=== PATIENT | female | born 2000 | race Two or more races ===

== ENCOUNTER 2024-04-07 11:45 | Emergency (ER) | payer MEDICAID, OTHER ==
[~2024-04-07] VITALS: Ht 167.6 cm; Wt 63.0 kg
[2024-04-07 12:22] VITALS: BP 110/70; PULSE 91; RESP 18; TEMP 98.7; O2SAT 97
[2024-04-07] MEDS ORDERED: IBUP1TAB5 PO (13:28)
== END 2024-04-07 13:42 | disposition home or self-care (01) ==
LOC: ER 11:59
DX: S93.505A Unspecified sprain of left lesser toe(s), initial encounter (principal); Z79.1 Long term (current) use of non-steroidal anti-inflammatories (NSAID); X58.XXXA Exposure to other specified factors, initial encounter; Y93.89 Activity, other specified; Y92.89 Other specified places as the place of occurrence of the external cause; Y99.8 Other external cause status
CPT/HCPCS: 73630

== ENCOUNTER 2025-02-04 08:08 | Observation (INO) | payer MEDICAID ==
[~2025-02-04 08:08] MED LIST: IBUP1TAB5 PO
--- NOTE | 2025-02-04 09:04 | DVH ---
CLINICAL HISTORY: Term . COMPARISON: None TECHNIQUE: biophysical profile was performed. Transabdominal sonographic images of the fetus we re obtained. FINDINGS: The fetus is in cephalic position. heart rate measures 144 BPM. Amniotic fluid index measures 14.5 cm. The placenta is anterior in position without evidence of previa or abruption seen. BPP profile is an overall score of 8/8, with 2/2 points for breathing, with at least one episode of breathing over a 30 second duration during a 30 minute observation, 2/2 points for m ovements, with 3 or more discrete body or limb movements, 2/2 points for tone, with one or more episodes of extremity extension with return to flexion, or opening and closing of hand, and 2/ 2 points for amniotic fluid, with at least 1 pocket of amniotic fluid that measures 2 cm in 2 perpend icular planes. IMPRESSION: BPP score of 8/8.
--- NOTE | 2025-02-04 14:22 | DVHDS2 ---
Physician Discharge Progress N Final Diagnosis: iup at 40wks Operations or Procedures: Operations or Procedures nst reactive reviwed,sono Other Interventions Other Interventions refuses vag exam and induction Condition on Discharge: Good Disposition: Home Discharge Instructions: Diet: Regular Activity: Light activity Medications: na Follow Up Care: Specialist: 2d Discharge Statement: "Patient was advised to return to the ER or call 911 if any headaches, dizziness, shortness of breath, chest pain, abdominal pain, bleeding, fevers, or worsening of medical condition. Patient was counseled about treatment plan, medications, possible side effects, patientverbalized understanding. All questions were answered to the best of my ability. This discharge took greater then 30 minutes in planning, reviewing documentation, counseling the patient, and discussing with other team members." Visit Coding OBGYN Date of Service: Feb 04, 2025 Billing Provider: MATEO WOLFF DO [employer] Common Visit Codes: 24170-[id number] OBS CARE (HIGH) [employer]T [employer]KER Procedure Codes: 41419-40- NON-STRESS TEST MATEO WOLFF DO Feb 04, 2025 14:22
[2025-02-05 20:07] LABS: Chlamydia Trachomatis, NAA Negative (Negative); Neisseria gonorrhoeae, NAA Negative (Negative)
== END 2025-02-04 09:28 | disposition home or self-care (01) ==
LOC: LDRP 08:08 → UNDOADMOB 08:08 → LDRP 08:16
PROVIDERS: ADMIT Obstetrics & Gynecology; ATTEND Obstetrics & Gynecology
DX: O48.0 Post-term pregnancy (principal); Z98.890 Other specified postprocedural states; Z79.899 Other long term (current) drug therapy; Z3A.40 40 weeks gestation of pregnancy
CPT/HCPCS: 59025; 76819; 81002; 87491; 87591; 94760; G0378

== ENCOUNTER 2025-02-18 16:05 | Observation (INO) | payer MEDICAID ==
--- NOTE | 2025-02-18 18:07 | DVH ---
BIOPHYSICAL PROFILE HISTORY: term TECHNIQUE: Multiple transabdominal real-time grayscale sonographic images through the gravid uterus of the fetus with duplex Doppler color flow and M-mode spectral analysis FINDINGS: BIOPHYSICAL PROFILE: breathing score: 2 movement score: 2 tone score: 2 Quantitative SHOAIB score: 2 (SHOAIB: 8.65 Cm.) Total score: 8/8 The cervix Single live fetus in vertex presentation. heart rate 153 beats per minute. Anterior Grade 3 placenta without previa or abruption Single live fetus at 40 weeks 4 days Biophysical profile score 8/8 corresponding to an MATT of 02/14/2025 IMPRESSION: 1. Biophysical profile score: 8/8
[2025-02-18] MEDS ORDERED: PREN1TAB71 PO (18:33)
--- NOTE | 2025-02-18 19:17 | DVHDS2 ---
Physician Discharge Progress N Final Diagnosis: testing for term Operations or Procedures: Operations or Procedures 24yo IUP@40.4wks, +FM, denies UCs/LOF/VB/preE sx VSS NST reactive SVE declined FKC/PreE/labor precautions reviewed. Other Interventions Other Interventions [place] [id number] Ph: [phone] DIAGNOSTIC IMAGING Diagnostic Imaging Report : [id number] Signed PATIENT: MICHELLE CHAEVZ ACCT: [id number] UNIT: [id number] : 2000 LOC: [facility] ROOM / BED: TRIAGE1 / A AGE / SEX: 24 / F ADM STATUS: ADM IN SERVICE 13 ORDERING PHYSICIAN: HAIR CORDERO CNM PROCEDURE(s): BPP - BIOPHYSICAL PROFILE REASON: term ORDER NUMBER(s): [id number], ACCESSION NUMBER(s): [id number] BIOPHYSICAL PROFILE HISTORY: term TECHNIQUE: Multiple transabdominal real-time grayscale sonographic images through the gravid uterus of the fetus with duplex Doppler color flow and M-mode spectral analysis FINDINGS: BIOPHYSICAL PROFILE: breathing score: 2 movement score: 2 tone score: 2 Quantitative SHOAIB score: 2 (SHOAIB: 8.65 Cm.) Total score: 8/8 The cervix Single live fetus in vertex presentation. heart rate 153 beats per minute. Anterior Grade 3 placenta without previa or abruption Single live fetus at 40 weeks 4 days Biophysical profile score 8/8 corresponding to an MATT of 02/14/2025 IMPRESSION: 1. Biophysical profile score: 8/8 ATED BY: BEV YAÑEZ Jr., DO DICTATED DATE/TIME: 02/18/251804 SIGNED BY: BEV YAÑEZ Jr., DO SIGNED DATE/TIME: 02/18/251804 CC: Condition on Discharge: Stable Disposition: Home Discharge Instructions: Diet: Regular Activity: No Restrictions, As Tolerated Medications: see med list Follow Up Care: Specialist: f/u in 2 days Discharge Statement: "Patient was advised to return to the ER or call 911 if any headaches, dizziness, shortness of breath, chest pain, abdominal pain, bleeding, fevers, or worsening of medical condition. Patient was counseled about treatment plan, medications, possible side effects, patientverbalized understanding. All questions were answered to the best of my ability. This discharge took greater then 30 minutes in planning, reviewing docu mentation, counseling the patient, and discussing with other team members." Visit Coding OBGYN Date of Service: Feb 18, 2025 Billing Provider: HAIR CORDERO CNM [employer] Common Visit Codes: 09549-[id number] OBS CARE (HIGH) [employer] Procedure Codes: 07870-53- NON-STRESS TEST HAIR CORDERO CNM Feb 18, 2025 19:17
== END 2025-02-18 18:55 | disposition home or self-care (01) ==
LOC: LDRP 16:05
PROVIDERS: ADMIT Obstetrics & Gynecology; ATTEND Obstetrics & Gynecology
DX: O48.0 Post-term pregnancy (principal); Z3A.40 40 weeks gestation of pregnancy; Z98.890 Other specified postprocedural states; Z79.899 Other long term (current) drug therapy
CPT/HCPCS: 59025; 76819; 81002; 94760; G0378

== ENCOUNTER 2025-02-20 19:14 | Observation (INO) | payer MEDICAID ==
[~2025-02-20] VITALS: Ht 167.6 cm; Wt 85.3 kg
[~2025-02-20 19:14] MED LIST changes: +PREN1TAB71 PO
--- NOTE | 2025-02-20 20:01 | DVH ---
BIOPHYSICAL PROFILE HISTORY: BPP Post date TECHNIQUE: Multiple transabdominal real-time grayscale sonographic images through the gravid uterus of the fetus with duplex Doppler color flow and M-mode spectral analysis FINDINGS: BIOPHYSICAL PROFILE: breathing score: 2 movement score: 2 tone score: 2 Quantitative SHOAIB score: 2 (SHOAIB: 9.97 Cm.) Total score: 8/8 The cervix 3 Single live fetus in cephalic presentation. heart rate 136 beats per minute. Anterior Grade 3 placenta without previa or abruption Single live fetus at 40 weeks 6 days Biophysical profile score 8/8 corresponding to an MATT of 02/14/2025 IMPRESSION: 1. Biophysical profile score: 8/8
--- NOTE | 2025-02-20 21:36 | DVHDS2 ---
Physician Discharge Progress N Final Diagnosis: testing for post dates, full term Operations or Procedures: Operations or Procedures SUBJECTIVE Ventura Griggs is a 24 yo with IUP at 40w6d presenting for scheduled NST/BPP for full term, postdates States she feels occasional UCs, but nothing consistent. Denies leaking fluid or vaginal bleeding. States positive movement. PNC: with Dr Kwan. appropriate appointments and follow-up LMP: 04/30/2024 (EDC: 02/14/25) Review of Systems: Neuro: No complaints Heart: No complaints Lungs: No complaints GI: No complaints : No complaints Skin: No complaints Extremities: No complaints OBJECTIVE VSS 1923: T: 98.8 1948: BP: 100/65, HR: 88, SpO2: 97%, RR: 17 FHR: Baseline: 130 Variability: Moderate Accelerations: Present Decelerations: Absent Category: 1 UCs: irregular BPP: 8/8 Neuro: A&O x4. No apparent distress. Affect appropriate Heart: Regular rate and rhythm Lungs: Clear bilaterally GI: Gravid. No tenderness : SVE discussed and performed with consent. Cervix 60/-3 Skin: Dry and intact. No rashes or lesions Extremities: Cap refill WNL. ASSESSMENT 24 yo with IUP at 40w6d Category 1 Tracing PLAN -Reviewed term labor precautions and kick counts. -Extensively discussed patient plan and anxieties with labor and induction. Reviewed risks/benefits of induction vs expectant management with surveillance, including increased risk of macrosomia and stillbirth with expectant management. Addressed all patient questions and patient verbalizes understanding of the risks/benefits. Patient adamantly declines induction at this time and prefers to continue surveillance and expectant management -NST/BPP scheduled on February 22 at 0900 Other Interventions Other Interventions BIOPHYSICAL PROFILE HISTORY: BPP Post date TECHNIQUE: Multiple transabdominal real-time grayscale sonographic images through the gravid uterus of the fetus with duplex Doppler color flow and M-mode spectral analysis FINDINGS: BIOPHYSICAL PROFILE: breathing score: 2 movement score: 2 tone score: 2 Quantitative SHOAIB score: 2 (SHOAIB: 9.97 Cm.) Total score: 8/8 The cervix 3 Single live fetus in cephalic presentation. heart rate 136 beats per minute. Anterior Grade 3 placenta without previa or abruption Single live fetus at 40 weeks 6 days Biophysical profile score 8/8 corresponding to an MATT of 02/14/2025 IMPRESSION: 1. Biophysical profile score: 8/8 Condition on Discharge: Good Disposition: Home Discharge Instructions: Diet: Regular Activity: No Restrictions, As Tolerated Medications: See med list. No change Follow Up Care: Specialist: Followup on Sunday, 02/22 Discharge Statement: "Patient was advised to return to the ER or call 911 if any headaches, dizziness, shortness of breath, chest pain, abdominal pain, bleeding, fevers, or worsening of medical condition. Patient was counseled about treatment plan, medications, possible side effects, patientverbalized understanding. All questions were answered to the best of my ability. This discharge took greater then 30 minutes in planning, reviewing documentation, counseling the patient, and discussing with other team members." Visit Coding OBGYN Date of Service: Feb 20, 2025 Billing Provider: BARBY YOUNGBLOOD CNM [employer] Common Visit Codes: [id number] INP/OBS CARE (HIGH) [employer] Procedure Codes: 73026-21- NON-STRESS TEST BARBY YOUNGBLOOD CNM Feb 20, 2025 21:36
== END 2025-02-20 21:17 | disposition home or self-care (01) ==
LOC: LDRP 19:14
PROVIDERS: ADMIT Obstetrics & Gynecology; ATTEND Obstetrics & Gynecology
DX: O48.0 Post-term pregnancy (principal); Z3A.40 40 weeks gestation of pregnancy; Z79.899 Other long term (current) drug therapy
CPT/HCPCS: 59025; 76819; 81002; 94760; G0378